=== PATIENT | female | born 1950 | race African-American/Black ===

== ENCOUNTER 2016-07-04 15:06 | Emergency (ER) | payer BC, OTHER ==
--- NOTE | 2016-07-04 15:14 | PDOC ---
Rapid Medical Evaluation Time Seen by Provider: 07/04/16 15:12 Medical Evaluation: 07/04/16 15:12 I have performed a brief in=person evaluation of this patient The patient presents with a chief complaint of right knee pain after exercising Physical finding: right knee pain I have ordered an x-ray The patient will proceed to the fast track for further evaluation
[2016-07-04 15:16] VITALS: BP 160/64; PULSE 57; TEMP 97.7; BMI 28.8
--- NOTE | 2016-07-04 16:06 | PDOC ---
History of Present Illness - General Chief Complaint: Pain Stated Complaint: RT KNEE PAIN Time Seen by Provider: 07/04/16 15:12 History Source: Patient Exam Limitations: No Limitations - History of Present Illness Initial Comments: CHIEF COMPLAINT: 66 y/o afebrile female with PMH NIDDM c/o right knee pain. HISTORY OF PRESENT ILLNESS: The patient states she's had right knee pain on and off for the past few months. yesterday, after exercising on the stationary bike her right knee pain got really bad and she had some swelling to her right knee. She denies trauma to knee, fall, f/c, n/v/d, redness/warmth to affected knee. She took tylenol for pain which she states did help a little bit. REVIEW OF SYSTEMS: GENERAL/CONSTITUTIONAL: No fever/chills. No weakness. No weight change. CARDIOVASCULAR: No chest pain or shortness of breath. RESPIRATORY: No cough, wheezing, or hemoptysis. MUSCULOSKELETAL: +right knee pain and swelling. No neck or back pain. SKIN: No rash or easy bruising. NEUROLOGIC: No headache, vertigo, loss of consciousness, or loss of sensation. PHYSICAL EXAM: VITAL_SIGNS: within normal limits GENERAL_APPEARANCE: alert, cooperative, mild obvious discomfort with ambulation. MENTAL_STATUS: speech clear, oriented X 3, responds appropriately to questions. NEURO: motor intact and sensory intact in injured extremity. EXTREMITIES: Minimal swelling to right knee with pain elicited with palpation of medial joint line. No TTP of tibial plateau. Negative lachmann's test. SKIN: warm, dry, good color. Past History - Past Medical History Allergies/Adverse Reactions: Allergies Allergy/AdvReac Type Severity Reaction Status Date / Time No Known Allergies Allergy Verified 07/04/16 15:16 Home Medications: Ambulatory Orders NK [No Known Home Medication] 07/04/16 Diabetes: Yes HTN: Yes - Psycho/Social/Smoking Cessation Hx Anxiety: No Suicidal Ideation: No Smoking History: Never smoked Have you smoked in the past 12 months: No Information on smoking cessation initiated: No Hx Alcohol Use: No Drug/Substance Use Hx: No Substance Use Type: None *Physical Exam - Vital Signs Last Vital Signs Temp Pulse Resp BP Pulse Ox 97.7 F 57 L 18 160/64 98 07/04/16 15:13 07/04/16 15:13 07/04/16 15:13 07/04/16 15:13 07/04/16 15:13 Medical Decision Making - Medical Decision Making A/P: 66 y/o female with either arthritis or medial meniscus tear. Xray was ordered in triage. Right knee xray IMPRESSION: Mild osteoarthritic changes. The patient was given Motrin in the ER and provided with an PARVEZ bandage. Suggested she take motrin at home for pain/swelling, use PARVEZ bandage as needed, follow RICE instructions and f/u with Dr. Ramires if symptoms persist for possible MRI. The patient verbalizes understanding of all instructions, has no further questions and is awaiting discharge. *DC/Admit/Observation/Transfer Diagnosis at time of Disposition: Knee pain, right Qualifiers: Chronicity: acute Qualified Code(s): M25.561 - Pain in right knee - Discharge Dispostion Disposition: HOME Condition at time of disposition: Good - Referrals Referrals: Abdon Ramires MD [Staff Physician] - - Patient Instructions Printed Discharge Instructions: DI for Knee Pain, How To Perform RICE (Rest, Ice, Compress, Elevate), DI for Meniscal Tear Additional Instructions: Discharge Instructions: -take 600mg of Ibuprofen OR Motrin every 6 hours with food for pain/swelling -Use PARVEZ bandage as needed for comfort -Follow RICE instructions -Follow up with Dr. Ramires within 2 weeks if symptoms continue
[2016-07-04] MEDS ORDERED: IBUPROFEN 600 MG TABLET (FP) PO ONE ×2 (16:07→16:09)
== END 2016-07-04 16:22 | disposition home or self-care (01) ==
LOC: JERFT 15:06
DX: M25.561 Pain in right knee (principal); I10 Essential (primary) hypertension; E11.9 Type 2 diabetes mellitus without complications
CPT/HCPCS: 73560-TC-RT; 99281-25

== ENCOUNTER 2018-03-20 13:55 | Emergency (ER) | payer BC, OTHER ==
[2018-03-20 14:26] VITALS: BP 152/69; PULSE 65; TEMP 98.1; BMI 28.3
--- NOTE | 2018-03-20 14:27 | PDOC ---
Rapid Medical Evaluation Chief Complaint: Headache Time Seen by Provider: 03/20/18 14:22 Medical Evaluation: Allergies Allergy/AdvReac Type Severity Reaction Status Date / Time diltiazem AdvReac Cough Verified 03/20/18 14:21 lisinopril AdvReac Cough Verified 03/20/18 14:21 03/20/18 14:22 c/o right sided headache x 2 month worse in the last 1 week. denies fever/ chills, photophobia, weakness, dizziness. seen by md for similar complaint denies past imaging Pe: patient alert ox 3 A: headache; hypertension P:CT head patient to the ER for further management of care Discharge Disposition - Diagnosis Headache Qualifiers: Headache type: unspecified Headache chronicity pattern: acute headache Intractability: not intractable Qualified Code(s): R51 - Headache - Referrals - Patient Instructions - Post Discharge Activity
--- NOTE | 2018-03-20 14:59 | PDOC ---
History of Present Illness - General Chief Complaint: Headache Stated Complaint: HEADACHE Time Seen by Provider: 03/20/18 14:22 History Source: Patient Exam Limitations: No Limitations - History of Present Illness Initial Comments: 03/20/18 14:53 67 yr female with c/o headache right sided for 3 months. Timing/Duration: reports: other (2 monhts daily relieved with sleep ) Severity: Yes: mild Past History - Past Medical History Allergies/Adverse Reactions: Allergies Allergy/AdvReac Type Severity Reaction Status Date / Time diltiazem AdvReac Cough Verified 03/20/18 14:22 lisinopril AdvReac Cough Verified 03/20/18 14:22 Home Medications: Ambulatory Orders Aspirin 81 mg PO DAILY 03/20/18 Aspirin/Acetaminophen/Caffeine [Excedrin Migraine Caplet] 2 each PO DAILY PRN # 20 tablet 03/20/18 Metformin HCl [Glucophage] 500 mg PO BID 03/20/18 Metoprolol Tartrate 100 mg PO DAILY 03/20/18 COPD: No Diabetes: Yes HTN: Yes - Suicide/Smoking/Psychosocial Hx Smoking History: Never smoked Have you smoked in the past 12 months: No Hx Alcohol Use: No Drug/Substance Use Hx: No Substance Use Type: None Neuro Specific PMHX - Complaint Specific PMHX Glaucoma: No Herniated Disk: No Laminectomy: No Migraine: No Multiple Sclerosis: No Neuropathy: No TIA: No *Physical Exam - Vital Signs Last Vital Signs Temp Pulse Resp BP Pulse Ox 98.1 F 65 16 152/69 99 03/20/18 14:23 03/20/18 14:23 03/20/18 14:23 03/20/18 14:23 03/20/18 14:23 *DC/Admit/Observation/Transfer Diagnosis at time of Disposition: Headache Qualifiers: Headache type: unspecified Headache chronicity pattern: acute headache Intractability: not intractable Qualified Code(s): R51 - Headache - Discharge Dispostion Disposition: HOME Condition at time of disposition: Good - Prescriptions Prescriptions: Aspirin/Acetaminophen/Caffeine [Excedrin Migraine Caplet] 2 each PO DAILY PRN # 20 tablet PRN Reason: Headache - Referrals Referrals: Ramone Brooks MD [Staff Physician] - Lauren Collins MD [Staff Physician] - - Patient Instructions Additional Instructions: follow with fo neurology and for primary care call first to make sure they take your insurance try excedrin migraine as directed for headache take as soon as the headache starts avoid excessive caffeine avoid texting reading fine print as this can make headaches worse the cat scan today shows no abnormality that would cause headaches please follow with the neurologist - Post Discharge Activity
[2018-03-20] MEDS ORDERED: SUMATRIPTAN SUCCINATE 6 MG/0.5 ML VIAL SQ ONE (15:24)
== END 2018-03-20 16:11 | disposition home or self-care (01) ==
LOC: JERFT 13:55
DX: R51 Headache (principal)
CPT/HCPCS: 70450-TC; 99281-25